=== PATIENT | female | born 1955 | race Caucasian/White ===

== ENCOUNTER 2024-12-28 11:09 | Emergency (ER) | payer BC, MEDICARE ==
[~2024-12-28] VITALS: Ht 160 cm; Wt 57.0 kg
[2024-12-28 11:12] VITALS: O2SAT 98
[2024-12-28] MEDS: LIDOCAINE HCL/EPINEPHRINE 1%-EPI 1:100,000 20ML VIAL INFIL ONE (12:38)
[2024-12-28] MEDS: TETANUS, DIPHTHERIA, PERTUSSIS VAC/PF 0.5ML (>10YR OLD) IM ONE (13:02)
[2024-12-28] MEDS ORDERED: ACET-2708 MT (15:43)
[2024-12-28 16:04] VITALS: BP 129/87; PULSE 92; RESP 16; TEMP 37; O2SAT 98
== END 2024-12-28 16:05 | disposition home or self-care (01) ==
LOC: ER 11:09
DX: S01.01XA Laceration without foreign body of scalp, initial encounter (principal); E11.9 Type 2 diabetes mellitus without complications; I10 Essential (primary) hypertension; M79.641 Pain in right hand; R51.9 Headache, unspecified; Z88.0 Allergy status to penicillin; Z88.1 Allergy status to other antibiotic agents; Z88.5 Allergy status to narcotic agent; Z98.1 Arthrodesis status; W01.0XXA Fall on same level from slipping, tripping and stumbling without subsequent striking against object, initial encounter; Y93.89 Activity, other specified; Y92.89 Other specified places as the place of occurrence of the external cause; Y99.8 Other external cause status
CPT/HCPCS: 99285; 70450; 73130; 72125; 90715; 12005; 90471; J2004